=== PATIENT | female | born 1950 | race Caucasian/White ===

== ENCOUNTER 2017-05-26 11:48 | Inpatient (IN) | payer MEDICARE ==
[~2017-05-26] VITALS: Ht 167.6 cm; Wt 83.8 kg
[~2017-05-26 11:48] MED LIST: AMBIEN5 MG PO; AMLODIPINE5 MG PO; BENAZEPRIL10 MG PO; LOPRESSOR12.5 MG PO; METOPROLOL25 MG PO; OMEPRAZOLE10 MG PO; SOMA350 MG PO; TRAMADOL HCL50 MG PO
[2017-05-26] MEDS ORDERED: FLEXERIL5 MG PO (12:02)
[2017-05-26] MEDS ORDERED: PERCOCET 5/325M1 TAB PO (12:02)
[2017-05-26] MEDS ORDERED: PHENERGAN25 MG/TAB PO (12:03)
[2017-05-26 13:11] LABS: HEMATOCRIT 44.9 % (37.0-47.0); HEMOGLOBIN 14.8 g/dl (12.0-16.0); IMMATURE GRANULOCYTES 0.2 % (0.0-1.0); MEAN CELL VOLUME 91.1 fL CALC (80.0-100.0); NEUT# 7.8 thou/uL (2.00-7.15); RED BLOOD COUNT 4.93 mill/uL (4.20-5.60); RED CELL DISTRI WIDTH 13.4 % (11.5-15.5)
[2017-05-26 13:23] LABS: PROTHROMBIN TIME 11.2 SECONDS (9.0-12.5)
[2017-05-26 13:55] LABS: ALBUMIN 4.2 g/dL (3.2-5.0); ALKALINE PHOSPHATASE 74 u/l (38-126); ANION GAP 15 (6-22 (CALC)); BILIRUBIN, TOTAL 0.9 mg/dL (0.0-1.4); BUN 22 mg/dL (8-23); BUN/CREATININE RATIO 32 (12-20 (CALC)); CALCIUM 8.5 mg/dL (8.4-10.2); CARBON DIOXIDE 24 mmol/l (22-30); CHLORIDE 104 mmol/l (95-108); CREATININE 0.7 mg/dL (0.5-1.0); GFR > 60 ML/MIN (>=60 (CALC)); GFR FOR AFR.AMER. > 60 ML/MIN (>=60 (CALC)); GLUCOSE 105 mg/dL (82-115); LIPASE 100 u/l (23-300); POTASSIUM 4.1 mmol/l (3.5-5.1); SGOT/AST 81 u/l (9-36); SGPT/ALT 66 u/l (11-66); SODIUM 138 mmol/l (137-146); TOTAL PROTEIN 7.4 g/dL (6.3-8.2)
[2017-05-26 14:07] LABS: MYOGLOBIN 117 ng/mL (0 - 62)
[2017-05-26 16:00] VITALS: BP 153/68
[2017-05-26] MEDS ORDERED: LOPRESSOR25 MG PO (18:02)
[2017-05-26] MEDS ORDERED: MULTI VIT PO (18:02)
[2017-05-26] MEDS ORDERED: VITAMIN D-31000 UNIT PO (18:03)
[2017-05-26] MEDS ORDERED: DILAUDID2 MG PO (18:04)
[2017-05-26 20:40] VITALS: BP 120/54
[2017-05-27 04:02] VITALS: BP 113/57
[2017-05-27 07:45] VITALS: BP 125/50
[2017-05-27 14:31] LABS: URINE BILIRUBIN - DIPSTICK NEGATIVE (NEGATIVE); URINE BLOOD DIPSTICK TRACE-INTACT (NEGATIVE); URINE CLARITY CLEAR; URINE COLOR YELLOW; URINE GLUCOSE - DIPSTICK NEGATIVE (NEGATIVE); URINE KETONE NEGATIVE (NEGATIVE); URINE LEUK ESTERASE NEGATIVE (NEGATIVE); URINE NITRITE - DIPSTICK NEGATIVE (Negative); URINE PH 5.5 (4.5-8.0); URINE PROTEIN - DIPSTICK NEGATIVE (NEG-TRACE); URINE UROBILINOGEN - DIPSTICK 0.2 E.U./dL (0.2)
[2017-05-27 15:33] VITALS: BP 129/50
[2017-05-27 20:00] VITALS: BP 114/63
[2017-05-28 06:11] LABS: CHOLESTEROL HDL RATIO 3.9 (<4.4 (CALC))
[2017-05-28 07:30] VITALS: BP 121/51
[2017-05-28 09:10] VITALS: BP 121/51
[2017-05-28] MEDS ORDERED: KEFLEX500 M1 PO (10:09)
[2017-05-28] MEDS ORDERED: DOXYCYCL HYC100 MG PO (10:09)
[2017-05-28] MEDS ORDERED: FLORASTOR250 M1 PO (10:09)
== END 2017-05-28 11:05 | disposition home or self-care (01) | DRG 603 ==
LOC: ENPENDDIS → ED 11:48 → ED-I 14:43 → ED 15:33 → MS2 15:34
PROVIDERS: Emergency Medicine; Nurse Practitioner Family; ADMIT Internal Medicine; ATTEND Internal Medicine
DX: L03.113 Cellulitis of right upper limb (principal); I10 Essential (primary) hypertension; K52.9 Noninfective gastroenteritis and colitis, unspecified; M81.0 Age-related osteoporosis without current pathological fracture; G89.4 Chronic pain syndrome; J61 Pneumoconiosis due to asbestos and other mineral fibers; Z86.73 Personal history of transient ischemic attack (TIA), and cerebral infarction without residual deficits; Z86.718 Personal history of other venous thrombosis and embolism; Z96.653 Presence of artificial knee joint, bilateral
CPT/HCPCS: G0378; J1650; J3370

== ENCOUNTER 2017-12-21 16:24 | Observation (INO) | payer MEDICARE ==
[~2017-12-21] VITALS: Ht 167.6 cm; Wt 85.4 kg
[~2017-12-21 16:24] MED LIST changes: +DILAUDID2 MG PO; +DOXYCYCL HYC100 MG PO; +FLEXERIL5 MG PO; +FLORASTOR250 M1 PO; +KEFLEX500 M1 PO; +LOPRESSOR25 MG PO; +MULTI VIT PO; +PERCOCET 5/325M1 TAB PO; +PHENERGAN25 MG/TAB PO; +VITAMIN D-31000 UNIT PO
--- NOTE | 2017-12-21 16:38 | NUR ---
PT CAME TO THE UNIT VIA WC ACCOMAPNIED BY STAFF. LAB CAME AND LUIS F SPECIMENS TO TEST. BC COMPLETED: DRUM SAW OPERATOR IN SPEAKING WITH PT RE: MEDICATIONS.
[2017-12-21 16:49] VITALS: BP 161/74
[2017-12-21 16:58] LABS: HEMATOCRIT 46.5 % (37.0-47.0); HEMOGLOBIN 15.1 g/dl (12.0-16.0); MEAN CELL VOLUME 93.2 fL CALC (80.0-100.0); MEAN CORPUSCULAR HGB 30.3 pG CALC (26.0-32.0); MEAN CORPUSCULAR HGB CONC 32.5 g/L CALC (32.0-36.0); RED BLOOD COUNT 4.99 mill/uL (4.20-5.60); RED CELL DISTRI WIDTH 12.8 % (11.5-15.5)
[2017-12-21] MEDS ORDERED: SOMA350 MG PO (16:58)
[2017-12-21] MEDS ORDERED: REQUIP0.5 MG PO (16:58)
[2017-12-21] MEDS ORDERED: ASPIRIN 8181 MG PO (16:58)
--- NOTE | 2017-12-21 17:00 | NUR ---
ASSESSMENT IS COMPLTED: PT 'S BREATH SOUNDS ARE CLEAR, BILATERALLY, NO C/O SOB, HR IS REG,PULSES ARE STRONGX4. ABD IS SOFT AND TENDER IN LOWER QUADS DUE TO SPASMS. SHE HAS SPASMS IN HER BACK AND ABD. UNABLE TO GET AN IV SITE.
[2017-12-21 17:13] LABS: ALKALINE PHOSPHATASE 73 u/l (38-126); ANION GAP 19 (6-22 (CALC)); BILIRUBIN, TOTAL 0.5 mg/dL (0.0-1.4); BUN 19 mg/dL (8-23); BUN/CREATININE RATIO 20 (12-20 (CALC)); CARBON DIOXIDE 24 mmol/l (22-30); CHLORIDE 105 mmol/l (95-108); GFR 55 ML/MIN (>=60 (CALC)); GFR FOR AFR.AMER. > 60 ML/MIN (>=60 (CALC)); POTASSIUM 4.5 mmol/l (3.5-5.1); SGOT/AST 69 u/l (9-36); SGPT/ALT 63 u/l (11-66); SODIUM 144 mmol/l (137-146); TOTAL PROTEIN 8.2 g/dL (6.3-8.2)
--- NOTE | 2017-12-21 18:00 | NUR ---
UNABLE TO OBTAIN IV SITE WAS ATTEMPTED TIMES 5 WITH STAFF ON UNIT AND ER. PT TOLERATED WELL. CONTINNUE TO OBSERVE AND MONITOR.
--- NOTE | 2017-12-21 18:32 | NUR ---
UNABLE TO OBTAIN IV SITE PT HAS BEEN TRIED 5 TIMES. NO SUCCES.
[2017-12-21 19:25] VITALS: BP 146/76
--- NOTE | 2017-12-21 19:30 | NUR ---
REPORT GIVEN TO ONCOMING SHIFT. RE: IV SITE . PT WAS TRANSPORTED TO HAVE CT SCAN AND XRAY COMPLETED
--- NOTE | 2017-12-21 20:00 | NUR ---
PATIENT RETURNED FROM RADIOLOGY VIA WHEELCHAIR AND RESTING IN BED. PATIENT WITH MULTIPLE C/O PAIN-RLQ OF ABD, BACK AND NECK PAIN, RIGHT ARM PAIN. PATIENT MEDICATED WITH DILAUDID 2MG IM TO RIGHT UPPER OUTER QUADRANT OF HIP. NEW IV SITE STARTED TO RIGHT FOREARM-#22 GAUGE WITH GOOD BLOOD RETURN. IVF STARTED-NS AT 100CC/HR. ROCEPHIN INFUSING ORDERED. PATIENT INFORMED OF NPO STATUS ORDERED. URINE SPEC WAS OBTAINED AND SENT TO LAB. SAFETY PRECAUTIONS REINFORCED. CALL LIGHT IN REACH. WILL CONT TO MONITOR.
[2017-12-21 20:39] LABS: URINE BILIRUBIN - DIPSTICK NEGATIVE (NEGATIVE); URINE BLOOD DIPSTICK SMALL (NEGATIVE); URINE COLOR YELLOW; URINE GLUCOSE - DIPSTICK NEGATIVE (NEGATIVE); URINE KETONE NEGATIVE (NEGATIVE); URINE LEUK ESTERASE NEGATIVE (NEGATIVE); URINE NITRITE - DIPSTICK NEGATIVE (Negative); URINE PH 6.5 (4.5-8.0); URINE PROTEIN - DIPSTICK NEGATIVE (NEG-TRACE); URINE SPECIFIC GRAVITY 1.015; URINE UROBILINOGEN - DIPSTICK 0.2 E.U./dL (0.2)
[2017-12-21 20:49] LABS: URINE CLARITY CLEAR
[2017-12-21 20:50] LABS: URINE SQUAMOUS EPITHELIAL CELL FEW EPI/hpf (0-FEW); URINE WBC 0-2 WBC/hpf (0-5)
--- NOTE | 2017-12-21 23:00 | NUR ---
PATIENT CALLED AND RESPONDED TO THE CALL-PATIENT C/O SEVERE ITCHING AND WITH RED RASH NOTED TO ARM-CIPRO STOPPED IMMEDIATELY. PATIENT MEDICATED WITH BENEDRYL 25MG IVP FOR ALLERGIC REACTION. IVF NS PATENT AND INFUSING AT 100CC/HR. DR. KEENAN NOTIFIED AND RISSA D/C. CALL LIGHT IN REACH. WILL CONT TO MONITOR.
--- NOTE | 2017-12-22 | NUR ---
PATIENT RESTING IN BED-NO FURTHER COMPLAINTS OF ITCHING AND REDNESS IS GONE TO RIGHT ARM. CALL LIGHT IN REACH. WILL CONT TO MONITOR.
--- NOTE | 2017-12-22 01:15 | NUR ---
PATIENT RESTING IN BED-C/O SEVERE HEADACHE, RLQ PAIN, RIGHT SHOULDER PAIN-10/10 ON PAIN SCALE. MEDICATED WITH MORPHINE 4MG IVP ORDERED FOR PAIN. SAFETY PRECAUTIONS REINFORCED. CALL LIGHT IN REACH. WILL CONT TO MONITOR.
--- NOTE | 2017-12-22 03:21 | NUR ---
PATIENT C/O SEVERE HEADACHE-10/10 9ON PAIN SCALE. STATES THAT SHE THINKS THAT MORPHINE GAVE HER A SEVERE HEADACHE WHEN SHE HAS HAD IT IN THE PAST. DR. KEENAN CALLED AND NEW ORDER FOR DILAUDID OBTAINED. WILL MEDICATE PATIENT WHEN PROFILED ON EMAR. PATIENT NOTIFIED. CALL LIGHT IN REACH. WILL CONT TO MONITOR.
[2017-12-22 03:42] VITALS: BP 126/55
--- NOTE | 2017-12-22 03:53 | NUR ---
PATIENT MEDICATED WITH DILAUDID 1MG IVP FOR C/O PAIN-MULTIPLE LOCATIONS-HEADACHE, RLQ ABD, RIGHT SHOULDER, ARM. VS TAKEN AND RECORDED. FLAGYL INFUSING ORDERED. CALL LIGHT IN REACH. WILL CONT TO MONITOR.
--- NOTE | 2017-12-22 04:06 | NUR ---
PATIENT STATES THAT HER "HEADACHE IS BETTER BUT NOW THE PAIN HAS MOVED INTO HER NECK AND SHOULDERS". 5/10 ON PAIN SCALE AND PATIENT STATES "BUT I'M STILL AWAKE". PATIENT IS QUITE EMOTIONAL AT TIMES. CALL LIGHT IN REACH. WILL CONT TO MONITOR.
[2017-12-22 04:52] LABS: ALKALINE PHOSPHATASE 76 u/l (38-126); ANION GAP 16 (6-22 (CALC)); BILIRUBIN, TOTAL 0.4 mg/dL (0.0-1.4); BUN 15 mg/dL (8-23); BUN/CREATININE RATIO 21 (12-20 (CALC)); CARBON DIOXIDE 23 mmol/l (22-30); CHLORIDE 110 mmol/l (95-108); CREATININE 0.7 mg/dL (0.5-1.0); GFR > 60 ML/MIN (>=60 (CALC)); GFR FOR AFR.AMER. > 60 ML/MIN (>=60 (CALC)); POTASSIUM 4.1 mmol/l (3.5-5.1); SGOT/AST 86 u/l (9-36); SGPT/ALT 76 u/l (11-66); SODIUM 144 mmol/l (137-146); TOTAL PROTEIN 6.9 g/dL (6.3-8.2)
--- NOTE | 2017-12-22 06:15 | NUR ---
PATIENT APPEARS SLEEPING AT THIS TIME-POSITIONED ON HER SIDE. CALL LIGHT IN REACH. WILL CONT TO MONITOR
--- NOTE | 2017-12-22 07:00 | NUR ---
SHIFT CHANGE REPORT FROM MARIANA, PT AWAKE AND ALERT RESTING IN BED, DENIES PAIN AT THIS TIME BUT STATES SHE HAS EPISODIC SHARP PAIN TO LOWER ABD, IVF INFUSING, CALL CORBETT IN REACH.
[2017-12-22 08:05] VITALS: BP 114/49
--- NOTE | 2017-12-22 12:36 | NUR ---
RESTING IN BED, REPORTED CHEEZY DISCHARGE WITH BURNING WHICH SHE HAS BEEN TREATING WITH MONOSTAT, FARMWORKER PULLET FARM EXAMINED AND EVALUATED, NO NEW ORDERS, PAIN MANAGED WITH ANALGESICS, WILL CONTINUE TO MONITOR.
[2017-12-22 14:58] VITALS: BP 126/56
--- NOTE | 2017-12-22 18:00 | NUR ---
PT JUST REPORTED SHE VOMITTED AFTER ATTEMPTING TO EAT MEAL, SHE HAD JUST COMSUMED VERY SMALL AMOUNT OF MEAL. EARLIER SHE C/O BURNING SENSATION IN EPIGASTRIC REGION AND MUCH BURPING. TOOL MACHINIST WAS NOTIFIED AND WROTE NEW ORDERS.
--- NOTE | 2017-12-22 19:00 | NUR ---
RECEIVED CHANGE OF SHIFT REPORT FROM JESSICA SAMULE. PATIENT LYING IN BED AND REPORTS DISCOMFROT AND AND ABD PAIN OF 6 ON 0-10 SCALE. NO APPARENT ACUTE DISTRESS NOTED.
[2017-12-22 19:40] VITALS: BP 158/75
--- NOTE | 2017-12-22 19:55 | NUR ---
MEDICATED PATIENT WITH PERCOCET 5/325 FOR PAIN. WILL CONTINUE TO MONITOR.
--- NOTE | 2017-12-23 | NUR ---
PATIENT RESTING QUIETLY. NO PAIN AT THIS TIME. NO APPARENT ACUTE DISTRESS NOTED.
[2017-12-23 04:00] VITALS: BP 103/44
--- NOTE | 2017-12-23 04:00 | NUR ---
PATIENT RESTING MORE COMFORTABLY AT THIS TIME. NO APPARENT ACUTE CHANGES NOTED IN PATIENT'S CONDITION.
--- NOTE | 2017-12-23 05:22 | NUR ---
PT C/O HEADACHE. MEDICATED WITH TYLENOL 650 MG TABS. WILL CONTINUE TO MONITOR
[2017-12-23 06:04] LABS: HEMATOCRIT 41.9 % (37.0-47.0); HEMOGLOBIN 13.6 g/dl (12.0-16.0); IMMATURE GRANULOCYTES 0.2 % (0.0-1.0); MEAN CELL VOLUME 93.7 fL CALC (80.0-100.0); MEAN CORPUSCULAR HGB 30.4 pG CALC (26.0-32.0); MEAN CORPUSCULAR HGB CONC 32.5 g/L CALC (32.0-36.0); NEUT# 1.81 thou/uL (2.00-7.15); RED BLOOD COUNT 4.47 mill/uL (4.20-5.60); RED CELL DISTRI WIDTH 12.6 % (11.5-15.5)
[2017-12-23 06:07] LABS: ANION GAP 14 (6-22 (CALC)); BUN 11 mg/dL (8-23); BUN/CREATININE RATIO 15 (12-20 (CALC)); CARBON DIOXIDE 24 mmol/l (22-30); CHLORIDE 109 mmol/l (95-108); CREATININE 0.7 mg/dL (0.5-1.0); GFR > 60 ML/MIN (>=60 (CALC)); GFR FOR AFR.AMER. > 60 ML/MIN (>=60 (CALC)); MAGNESIUM 2.1 mg/dL (1.6-2.3); POTASSIUM 4.4 mmol/l (3.5-5.1); SODIUM 144 mmol/l (137-146)
--- NOTE | 2017-12-23 06:22 | NUR ---
PT REPORTS HEADACHE IS GONE AFTER INTERVENTION.
--- NOTE | 2017-12-23 07:20 | NUR ---
SHIFT CHANGE REPORT FROM CHEPE, PT SLEEPING AT THIS TIME, BREATHING EVEN AND NON-LABORED, IVF INFUSING, CALL CORBETT IN REACH.
--- NOTE | 2017-12-23 07:51 | NUR ---
AWAKE ALERT AND ORIENTED, STATES SHE SLEPT WELL BUT STILL HAVE ABDOMINAL PAIN WHICH WORSENS DURING URINATION, STATES UNABLE TO TOLETATE MEAL AND OFFERED GINGERALE.
[2017-12-23 08:18] VITALS: BP 116/51
--- NOTE | 2017-12-23 10:35 | NUR ---
VOMITTED 20CC GREEN EMESIS, C/O NAUSES, COMPLAINS ADDRESSED.
[2017-12-23 15:16] VITALS: BP 142/55
--- NOTE | 2017-12-23 16:12 | NUR ---
CONTINUES TO EXPERIENCE EPISODES OF SHARP PAIN TO RIGHT LOWER ABDOMEN WHICH IS AGGRAVATED BY URINATION. ALSO HAS EPISODES OF NAUSEA AND SMALL AMOUNTS OCCASIONAL GREEN EMESIS. APPETITE IS VERY POOR SHE STATES SHE IS UNABLE TO TOLERATE FULL LIQUID MEAL. REQUESTED REGULAR SOLID FOODS SHE BELIEVES HER STOMACH WILL FEEL BETTER WITH SOLID FOODS. SPOTTER NOTIFIED OF REQUEST AND GAVE ORDER PT REQUEST, WILL CONTINUE TO MONITOR, CALL CORBETT IN REACH.
[2017-12-23 19:00] VITALS: BP 124/61
--- NOTE | 2017-12-23 19:00 | NUR ---
RECEIVED CHANGE OF SHIFT REPORT FROM JESSICA SAMUEL. PATIENT LYING IN BED AND APPEARS NOT TO BE IN ANY APPARENT ACUTE DISTRESS OR DISCOMFORT.DENIES PAIN OR NAUSEA. WILL CONTINUE TO MONITOR.
--- NOTE | 2017-12-23 19:00 | NUR ---
ORDER FOR CT FOR RENAL STONE PROTOCOL WRITTEN, CONTACTED DR CARMONA TO CLARIFY/EXPLAIN ORDER, INFORMED RADIOLOGY IS AWARE OF THIS PROTOCOL AND WILL PERFORM SAME, NURSE CHEPE INFORMED.
--- NOTE | 2017-12-24 | NUR ---
PT C/O ABDOMINAL PAIN AND NAUSEA AFTER AMBULATING TO THE BATHROOM. MEDICATED WITH ZOFRAN AND DILAUDID. WILL CONTINUE TO MONITOR.
--- NOTE | 2017-12-24 00:45 | NUR ---
PATIENT FELT NAUSEATED AND VOMITED IN THE BATHROOM.
--- NOTE | 2017-12-24 01:30 | NUR ---
PATIENT OFF THE FLOOR TO RADIOLOGY VIA WHEELCHAIR IN STABLE CONDITION.
--- NOTE | 2017-12-24 01:39 | NUR ---
PATIENT RETURNED TO THE FLOOR FRON RADIOLOGY
--- NOTE | 2017-12-24 04:00 | NUR ---
PATIENT ASLEEP AND LYING IN BED. NO APPARENT ACUTE CHANGES NOTED IN PT'S CONDITION.
[2017-12-24 04:27] VITALS: BP 143/69
[2017-12-24 05:51] LABS: HEMATOCRIT 41.9 % (37.0-47.0); HEMOGLOBIN 13.8 g/dl (12.0-16.0); IMMATURE GRANULOCYTES 0.2 % (0.0-1.0); MEAN CELL VOLUME 91.9 fL CALC (80.0-100.0); MEAN CORPUSCULAR HGB 30.3 pG CALC (26.0-32.0); MEAN CORPUSCULAR HGB CONC 32.9 g/L CALC (32.0-36.0); NEUT# 2.04 thou/uL (2.00-7.15); RED BLOOD COUNT 4.56 mill/uL (4.20-5.60); RED CELL DISTRI WIDTH 12.5 % (11.5-15.5)
[2017-12-24 06:10] LABS: ANION GAP 15 (6-22 (CALC)); BUN 7 mg/dL (8-23); BUN/CREATININE RATIO 11 (12-20 (CALC)); CARBON DIOXIDE 26 mmol/l (22-30); CHLORIDE 108 mmol/l (95-108); CREATININE 0.6 mg/dL (0.5-1.0); GFR > 60 ML/MIN (>=60 (CALC)); GFR FOR AFR.AMER. > 60 ML/MIN (>=60 (CALC)); SODIUM 145 mmol/l (137-146)
--- NOTE | 2017-12-24 07:00 | NUR ---
RECEIVED BEDSIDE REPORT FROM CHEPE LOPEZ. RESTING IN SUPINE POSITION WITH EYES CLOSED, AWAKENS EASILY. RESPS EVEN AND UNLABORED ON ROOM AIR. #22 RFA INFUSING WITHOUT DIFFICULTY, SITE APPEARS HEALTHY. VOICES NO NEEDS AT THIS TIME. PLAN OF CARE DISCUSSED. SAFETY PRECAUTIONS REINFORCED. BED IN LOWEST POSITION WITH WHEELS LOCKED. CALL LIGHT WITHIN REACH. WILL CONTINUE TO MONITOR.
[2017-12-24 07:59] VITALS: BP 154/91
[2017-12-24 08:57] VITALS: BP 154/91
--- NOTE | 2017-12-24 11:30 | NUR ---
RESTING IN BED WITH EYES CLOSED, AWAKENS EASILY. RESPS EVEN AND UNLABORED ON ROOM AIR. MEDICATED WITH DILAUDID IVP WITH ZOFRAN IVP FOR C/O 7/10 ABD PAIN WITH NAUSEA. CALL LIGHT WITHIN REACH. WILL CONTINUE TO MONITOR.
--- NOTE | 2017-12-24 13:50 | NUR ---
DR CARMONA IN WITH PT AND , NEW ORDERS RECEIVED.
[2017-12-24] MEDS ORDERED: ZOFRAN ODT4 MG PO (16:04)
--- NOTE | 2017-12-24 16:10 | NUR ---
IV site discontinued, cath intact. No edema , no redness, voices no discomfort.
--- NOTE | 2017-12-24 16:25 | NUR ---
Discharge instructions given. Patient verbalizes understanding of same. Discharged in stable condition via Wheelchair to Home with spouse. All belongings sent with pt.
== END 2017-12-24 16:25 | disposition home or self-care (01) ==
LOC: MS2 16:24
PROVIDERS: Nurse Practitioner Family; ADMIT Internal Medicine; ATTEND Internal Medicine
DX: R10.31 Right lower quadrant pain (principal); R11.0 Nausea; K29.70 Gastritis, unspecified, without bleeding; K57.30 Diverticulosis of large intestine without perforation or abscess without bleeding; I10 Essential (primary) hypertension; E86.0 Dehydration; F41.9 Anxiety disorder, unspecified; Z86.010 Personal history of colon polyps; Z86.718 Personal history of other venous thrombosis and embolism; Z86.73 Personal history of transient ischemic attack (TIA), and cerebral infarction without residual deficits
CPT/HCPCS: S0164

== ENCOUNTER 2018-10-10 20:39 | Emergency (ER) | payer MEDICARE ==
[~2018-10-10] VITALS: Ht 167.6 cm; Wt 81.0 kg
[~2018-10-10 20:39] MED LIST changes: +ASPIRIN 8181 MG PO; +REQUIP0.5 MG PO; +ZOFRAN ODT4 MG PO
[2018-10-10 22:17] LABS: HEMATOCRIT 37.3 % (37.0-47.0); HEMOGLOBIN 12.4 g/dl (12.0-16.0); IMMATURE GRANULOCYTES 0.5 % (0.0-5.0); MEAN CELL VOLUME 96.6 fL CALC (80.0-100.0); MEAN CORPUSCULAR HGB 32.1 pG CALC (26.0-32.0); MEAN CORPUSCULAR HGB CONC 33.2 g/L CALC (32.0-36.0); NEUT# 3.8 thou/uL (2.00-7.15); RED BLOOD COUNT 3.86 mill/uL (4.20-5.60); RED CELL DISTRI WIDTH 15.9 % (11.5-15.5)
[2018-10-10 22:41] LABS: ALBUMIN 4.4 g/dL (3.2-5.0); ALKALINE PHOSPHATASE 79 u/l (38-126); ANION GAP 15 (6-22 (CALC)); BILIRUBIN, TOTAL 0.3 mg/dL (0.0-1.4); BUN 17 mg/dL (8-23); BUN/CREATININE RATIO 22 (12-20 (CALC)); CARBON DIOXIDE 26 mmol/l (22-30); CHLORIDE 103 mmol/l (95-108); CREATININE 0.8 mg/dL (0.5-1.0); GFR > 60 ML/MIN (>=60 (CALC)); GFR FOR AFR.AMER. > 60 ML/MIN (>=60 (CALC)); POTASSIUM 3.9 mmol/l (3.5-5.1); SGOT/AST 45 u/l (9-36); SODIUM 140 mmol/l (137-146)
[2018-10-10 23:04] LABS: TOTAL PROTEIN 8.3 g/dL (6.3-8.2)
[2018-10-10 23:45] VITALS: BP 160/72
[2018-10-11] MEDS ORDERED: CEPHALEXIN500 M1 PO (04:02)
== END 2018-10-10 23:40 | disposition home or self-care (01) ==
LOC: ED 20:39
PROVIDERS: Emergency Medicine
DX: R07.81 Pleurodynia (principal); I10 Essential (primary) hypertension; Z85.118 Personal history of other malignant neoplasm of bronchus and lung; Z85.89 Personal history of malignant neoplasm of other organs and systems

== ENCOUNTER 2018-11-03 14:29 | Emergency (ER) | payer MEDICARE ==
[~2018-11-03] VITALS: Ht 167.6 cm; Wt 90.0 kg
[~2018-11-03 14:29] MED LIST changes: +CEPHALEXIN500 M1 PO; +PERCOCET 10/31 COMBO PO; -PERCOCET 5/325M1 TAB PO
[2018-11-03] MEDS ORDERED: COLESTIPOL1 GM PO (16:32)
[2018-11-03] MEDS ORDERED: CYCLOBENZAPR10 MG PO (16:33)
[2018-11-03] MEDS ORDERED: MARINOL5 MG PO (16:34)
[2018-11-03] MEDS ORDERED: MORPHINE SULFAT15 MG PO (16:41)
[2018-11-03] MEDS ORDERED: SYMBICORT 80-4.5MCG IN (16:44)
[2018-11-03] MEDS ORDERED: XANAX0.5 MG PO (16:45)
[2018-11-03 18:22] LABS: HEMATOCRIT 36.9 % (37.0-47.0); HEMOGLOBIN 12.4 g/dl (12.0-16.0); IMMATURE GRANULOCYTES 0.2 % (0.0-5.0); MEAN CELL VOLUME 95.1 fL CALC (80.0-100.0); MEAN CORPUSCULAR HGB CONC 33.6 g/L CALC (32.0-36.0); NEUT# 2.14 thou/uL (2.00-7.15); RED BLOOD COUNT 3.88 mill/uL (4.20-5.60); RED CELL DISTRI WIDTH 14.4 % (11.5-15.5)
[2018-11-03 18:40] LABS: ALBUMIN 4.1 g/dL (3.2-5.0); ALKALINE PHOSPHATASE 74 u/l (38-126); ANION GAP 13 (6-22 (CALC)); BILIRUBIN, TOTAL 0.2 mg/dL (0.0-1.4); BUN 17 mg/dL (8-23); BUN/CREATININE RATIO 28 (12-20 (CALC)); CARBON DIOXIDE 27 mmol/l (22-30); CHLORIDE 104 mmol/l (95-108); CREATININE 0.6 mg/dL (0.5-1.0); GFR > 60 ML/MIN (>=60 (CALC)); GFR FOR AFR.AMER. > 60 ML/MIN (>=60 (CALC)); LIPASE 194 u/l (23-300); POTASSIUM 4.2 mmol/l (3.5-5.1); SGOT/AST 59 u/l (9-36); SODIUM 140 mmol/l (137-146)
[2018-11-03 19:23] LABS: AMYLASE 74 u/l (30-110); PROTHROMBIN TIME 10.9 SECONDS (9.0-12.5)
[2018-11-03 19:36] LABS: MYOGLOBIN 18 ng/mL (0 - 62)
[2018-11-03 20:55] LABS: URINE BILIRUBIN - DIPSTICK NEGATIVE (NEGATIVE); URINE BLOOD DIPSTICK SMALL (NEGATIVE); URINE COLOR YELLOW; URINE GLUCOSE - DIPSTICK NEGATIVE (NEGATIVE); URINE KETONE NEGATIVE (NEGATIVE); URINE LEUK ESTERASE TRACE (NEGATIVE); URINE NITRITE - DIPSTICK NEGATIVE (Negative); URINE PROTEIN - DIPSTICK NEGATIVE (NEG-TRACE); URINE SPECIFIC GRAVITY 1.025; URINE UROBILINOGEN - DIPSTICK 0.2 E.U./dL (0.2)
[2018-11-03 21:07] LABS: URINE SQUAMOUS EPITHELIAL CELL FEW EPI/hpf (0-FEW)
[2018-11-03 22:35] VITALS: BP 189/87
== END 2018-11-03 22:35 | disposition home or self-care (01) ==
LOC: ED 14:29
PROVIDERS: Emergency Medicine; Family Medicine
DX: M54.5 Low back pain (principal); C34.90 Malignant neoplasm of unspecified part of unspecified bronchus or lung; C79.51 Secondary malignant neoplasm of bone; I10 Essential (primary) hypertension; M81.0 Age-related osteoporosis without current pathological fracture; Z86.73 Personal history of transient ischemic attack (TIA), and cerebral infarction without residual deficits